=== PATIENT | female | born 1965 | race Hispanic/Latino ===

== ENCOUNTER 2019-09-24 04:16 | Observation (INO) | payer OTHER ==
[2019-09-24] MEDS ORDERED: DIAZEPAM 10 MG/2 ML INJ SYRINGE ONE (04:34)
[2019-09-24] MEDS ORDERED: NA CHLORIDE 0.9% 1,000 ML ONE ×2 (04:34→06:24)
[2019-09-24] MEDS ORDERED: ONDANSETRON 4 MG/2 ML VIAL ONE (04:34)
[2019-09-24 04:46] LABS: Basophils % 1.3 % (0-1.3); Hematocrit 35.6 % (36.0-45.0); Lymphocytes % 56.3 % (15.3-44.8); MPV 9.8 fL (7.6-11.3); RBC Red Blood Cell Count 4.09 M/uL (3.86-4.86)
[2019-09-24 05:12] LABS: Blood Morphology Comment NOT SEEN (NOT SEEN); Platelet Estimate ADEQ
[2019-09-24 05:16] LABS: ALT/SGPT 27 U/L (12-78); AST/SGOT 16 U/L (15-37); Albumin 3.6 g/dL (3.4-5.0); Alkaline Phosphatase 68 U/L (45-117); BUN Blood Urea Nitrogen 9 mg/dL (7-18); Bicarbonate 18 mmol/L (21-32); Bilirubin Direct 0.1 mg/dL (0-0.2); Bilirubin Total 0.7 mg/dL (0.2-1.0); Glucose Level 170 mg/dL (74-106); Lipase 90 U/L (73-393); Magnesium 1.9 mg/dL (1.8-2.4); Protein, Total 7.1 g/dL (6.4-8.2); Sodium Level 142 mmol/L (136-145); Troponin (Emerg Dept Use Only) < 0.02 ng/mL (0.0-0.045)
[2019-09-24 05:17] LABS: Potassium 2.6 mmol/L (3.5-5.1)
[2019-09-24] MEDS ORDERED: KCL 20 MEQ/100 mL IVPB 20 MEQ/100 ML BAG IV ONE (05:22)
[2019-09-24] MEDS ORDERED: NA CHLORIDE 0.9% 500 ML ONE (05:22)
[2019-09-24] MEDS ORDERED: PROMETHAZINE INJ 25 MG/ML AMP ONE (05:32)
--- NOTE | 2019-09-24 06:07 | ER ---
Nurse's Notes [facility] Name: Rocio Barakat Age: 53 yrs Sex: Female : 1965 Arrival Date: 09/24/2019 Time: 04:24 Bed 5 Private MD: Diagnosis: Vertigo;Intractable vomiting;Unspecified atrial fibrillation;Hypokalemia;Acidosis Presentation: 09/24 04:25 Presenting complaint: Patient states: Reports she started having N/V/D around 3 AM. ea Reports she woke up and felt the room was spinning. Transition of care: patient was not received from another setting of care. Onset of symptoms was September 24, 2019. Risk Assessment: Do you want to hurt yourself or someone else? Patient reports no desire to harm self or others. Initial Sepsis Screen: Does the patient meet any 2 criteria? No. Patient's initial sepsis screen is negative. Does the patient have a suspected source of infection? No. Patient's initial sepsis screen is negative. Care prior to arrival: None. 04:25 Method Of Arrival: Wheelchair ea 04:25 Acuity: DIANN 3 ea Triage Assessment: 04:39 General: Appears uncomfortable, Behavior is cooperative. Pain: Denies pain. Neuro: ea Level of Consciousness is awake, alert, obeys commands, Oriented to person, place, time, situation, Reports dizziness, "room spinning". Respiratory: Airway is patent Respiratory effort is even, unlabored, Respiratory pattern is regular, symmetrical. GI: Reports diarrhea, nausea, vomiting. Derm: Skin is clammy, Skin is pale, Skin temperature is cool Warm blanket placed on pt. 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 - Social history:: Smoking status: unknown. - Family history:: not pertinent. - Ebola Screening: : Patient negative for fever greater than or equal to 101.5 degrees Fahrenheit, and additional compatible Ebola Virus Disease symptoms. - Hospitalizations: : No recent hospitalization is reported. Screenin:41 Abuse screen: Denies threats or abuse. Nutritional screening: No deficits noted. jd3 Tuberculosis screening: No symptoms or risk factors identified. Fall Risk Ambulatory Aid- None/Bed Rest/Nurse Assist (0 pts). Gait- Normal/Bed Rest/Wheelchair (0 pts) Mental Status- Oriented to own ability (0 pts). Total Barone Fall Scale indicates No Risk (0-24 pts). Assessment: 04:39 General: Appears in no apparent distress. uncomfortable, Behavior is cooperative, jd3 appropriate for age, anxious. Pain: Denies pain. Neuro: Level of Consciousness is awake, alert, obeys commands, Oriented to person, place, time, situation, Reports dizziness. Cardiovascular: Denies chest pain, Capillary refill < 3 seconds Patient's skin is warm and dry. Respiratory: Airway is patent Respiratory effort is even, unlabored, Respiratory pattern is regular, symmetrical, Denies cough, shortness of breath. GI: Abdomen is round non-distended, Abd is soft and non tender X 4 quads. Reports diarrhea, nausea, vomiting, Patient currently denies abdominal pain, tolerance of fluids, tolerance of food. : No signs and/or symptoms were reported regarding the genitourinary system. EENT: No signs and/or symptoms were reported regarding the EENT system. Derm: Skin is intact, Skin is clammy, Skin is normal, Skin temperature is warm. Musculoskeletal: Circulation, motion, and sensation intact. Range of motion: intact in all extremities. 05:29 Reassessment: Patient appears in no apparent distress at this time. Patient and/or jd3 family updated on plan of care and expected duration. Pain level reassessed. Patient is alert, oriented x 3, equal unlabored respirations, skin warm/dry/pink. provider at bedside discussing plan of care. pt reports some relief from the dizziness, reports continued nausea. 05:29 Cardiovascular: Rhythm is atrial fibrillation. jd3 05:58 Cardiovascular: Rhythm is sinus rhythm. jd3 07:00 Reassessment: Patient appears in no apparent distress at this time. No changes from jl7 previously documented assessment. Patient and/or family updated on plan of care and expected duration. Pain level reassessed. Patient is alert, oriented x 3, equal unlabored respirations, skin warm/dry/pink. 08:00 Reassessment: Patient appears in no apparent distress at this time. No changes from jl7 previously documented assessment. Patient and/or family updated on plan of care and expected duration. Pain level reassessed. Patient is alert, oriented x 3, equal unlabored respirations, skin warm/dry/pink. Vital Signs: 04:42 BP 117 / 64; Pulse 104; Resp 18; Temp 96.7(A); Pulse Ox 100% ; Weight 80.29 kg; Height ea 5 ft. 4 in. (162.56 cm); Pain 0/10; 05:29 BP 100 / 68; Pulse 127; Resp 20 S; Temp 97.4(O); Pulse Ox 100% on R/A; jd3 05:58 BP 112 / 76; Pulse 72; Resp 18 S; Pulse Ox 100% on R/A; jd3 08:00 BP 99 / 58; Pulse 74; Resp 17 S; Pulse Ox 99% on R/A; jl7 04:42 Body Mass Index 30.38 (80.29 kg, 162.56 cm) ea ED Course: 04:24 Patient arrived in ED. jd3 04:30 Salomon Magallanes MD is Attending Physician. rn 04:37 Inserted saline lock: 20 gauge in right antecubital area, using aseptic technique. ea Blood collected. 04:38 Gerald Nieto RN is Primary Nurse. jd3 04:39 Triage completed. ea 04:41 Patient has correct armband on for positive identification. Bed in low position. Call ea light in reach. 04:41 Arm band placed on right wrist. Patient placed in an exam room, on a stretcher, on ea pulse oximetry. 05:32 CT Abd/Pelvis - Without Contrast In Process Unspecified. EDMS 05:32 EKG done, by ED staff, reviewed by Salomon Magallanes MD. jd3 05:34 Head Brain Wo Cont In Process Unspecified. EDMS 05:35 CT Head Angio In Process Unspecified. EDMS 05:39 CT Neck Angio In Process Unspecified. EDMS 06:05 Maximiliano Doe DO is Hospitalizing Provider. rn 07:18 Primary Nurse role handed off by Gerald Nieto, GWEN bd 08:00 No provider procedures requiring assistance completed. Patient admitted, IV remains in jl7 place. intact, No redness/swelling at site. 08:16 aHny Nath, GWEN is Primary Nurse. jl7 Administered Medications: 04:38 Drug: NS 0.9% 1000 ml Route: IV; Rate: 1000 ml; Site: right antecubital; jd3 06:33 Follow up: Response: No adverse reaction; IV Status: Completed infusion; IV Intake: ea 1000ml 04:38 Drug: Valium 2 mg Route: IVP; Site: right antecubital; jd3 05:33 Follow up: Response: No adverse reaction jd3 04:39 Drug: Zofran 4 mg Route: IVP; Site: right antecubital; jd3 05:33 Follow up: Response: No adverse reaction; Nausea unchanged jd3 05:34 Drug: Potassium Chloride 20 mEq Route: IV; Rate: calculated rate; Site: right ea antecubital; 07:30 Follow up: Response: No adverse reaction; IV Status: Completed infusion jl7 05:35 CANCELLED (Duplicate Order): NS 0.9% 500 ml IV at bolus once ea 05:36 Drug: NS 0.9% 500 ml Route: IV; Rate: 125 ml/hr; Site: right antecubital; ea 08:19 Follow up: Response: No adverse reaction; IV Status: Infusion continued upon admission jl7 05:38 Drug: Phenergan 6.25 mg Route: IVP; Site: right antecubital; ea 07:00 Follow up: Response: No adverse reaction; Nausea is decreased jl7 06:33 Drug: NS 0.9% 1000 ml Route: IV; Rate: 1000 ml; Site: right antecubital; ea 08:18 Follow up: Response: No adverse reaction; IV Status: Completed infusion; IV Intake: jl7 1000ml Intake: 06:33 IV: 1000ml; Total: 1000ml. ea 08:18 IV: 1000ml; Total: 2000ml. jl7 Outcome: 06:06 Decision to Hospitalize by Provider. rn 08:31 Admitted to Tele accompanied by tech, family with patient, via wheelchair, room 214, jl7 with chart, Report called to GWEN Hester 08:31 Condition: stable 08:31 Discharge instructions given to patient, family, Instructed on the need for admit, Demonstrated understanding of instructions. 08:32 Patient left the ED. jl7 Signatures: Dispatcher [employer] EDMS Jolene Alicia Roman, MD MD rn Leal, Jahala, RN RN jl7 Trudi Canales RN RN ea Nieto, Gerald, RN RN jd3
--- NOTE | 2019-09-24 06:07 | EDPHYS ---
Physician Documentation [facility] Name: Rocio Barakat Age: 53 yrs Sex: Female : 1965 Arrival Date: 09/24/2019 Time: 04:24 Bed 5 Private MD: ED Physician Salomon Magallanes HPI: 09/24 04:32 This 53 yrs old Female presents to ER via Unassigned with complaints of rn Nausea/Vomiting/Diarrhea. 04:32 The patient presents to the emergency department with nausea, vomiting, diarrhea. rn Onset: The symptoms/episode began/occurred this morning. Possible causes: unknown. The symptoms are aggravated by nothing. The symptoms are alleviated by nothing. Severity of symptoms: At their worst the symptoms were moderate in the emergency department the symptoms are unchanged. The patient has not experienced similar symptoms in the past. The patient has not recently seen a physician. reports about 5 episodes of vomiting, + diarrhea, both non-bloody, began early this morning, tried to get up and very dizzy, feels like room is spinning, worse with movement of head, no weakness/numbness/focal neurological complaint. no vision changes or speech changes. . 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 - Social history:: Smoking status: unknown. - Family history:: not pertinent. - Ebola Screening: : Patient negative for fever greater than or equal to 101.5 degrees Fahrenheit, and additional compatible Ebola Virus Disease symptoms. - Hospitalizations: : No recent hospitalization is reported. ROS: 04:35 Constitutional: Negative for fever, chills, and weight loss, Eyes: Negative for injury, rn pain, redness, and discharge, Neck: Negative for injury, pain, and swelling, Cardiovascular: Negative for chest pain, palpitations, and edema, Respiratory: Negative for shortness of breath, cough, wheezing, and pleuritic chest pain, Abdomen/GI: + nausea/vomiting/diarrhea MS/Extremity: Negative for injury and deformity, Skin: Negative for injury, rash, and discoloration, Neuro: Negative for headache, weakness, numbness, tingling, and seizure. Exam: 04:35 Constitutional: This is a well developed, well nourished patient who is awake, alert, rn actively vomiting, able to get into bed from wheelchair on her own Head/Face: Normocephalic, atraumatic. ENT: dry MM Cardiovascular: tachycardic, irregular Respiratory: Hyperventilating, no wheezing Abdomen/GI: soft, non-tender, non-distended Skin: Warm, dry MS/ Extremity: Pulses equal, no cyanosis. Neurovascular intact. Full, normal range of motion. Equal circumference. Neuro: Awake and alert, GCS 15, oriented to person, place, time, and situation. Cranial nerves II-XII grossly intact. Motor strength 5/5 in all extremities. Sensory grossly intact. Cerebellar exam normal. Vital Signs: 04:42 BP 117 / 64; Pulse 104; Resp 18; Temp 96.7(A); Pulse Ox 100% ; Weight 80.29 kg; Height ea 5 ft. 4 in. (162.56 cm); Pain 0/10; 05:29 BP 100 / 68; Pulse 127; Resp 20 S; Temp 97.4(O); Pulse Ox 100% on R/A; jd3 05:58 BP 112 / 76; Pulse 72; Resp 18 S; Pulse Ox 100% on R/A; jd3 08:00 BP 99 / 58; Pulse 74; Resp 17 S; Pulse Ox 99% on R/A; jl7 04:42 Body Mass Index 30.38 (80.29 kg, 162.56 cm) ea MDM: 04:30 Patient medically screened. rn 04:47 ED course: states began throwing up around 0300. . rn 06:03 ED course: ECG with afib, no hx of afib, rate control held initially for borderline BP, rn at about 0600, converted spontaneously back to sinus rhythm. Pending CT head/neck angio and abdomen, but no gross abnormalities seen. Admitted to Dr. Doe for intractable vomiting, hypokalemia, acidosis, new onset afib. . 06:12 ED course: Spoke with radiologist regarding CT head and ct angio, negative for acute rn occlusion or vascular abnormalities. . 06:30 Differential diagnosis: Nonspecific abd pain, gastritis, cholecystitis, pancreatitis, rn appendicitis, diverticulitis, viral gastroenteritis, gastroenteritis. Data reviewed: vital signs, nurses notes, lab test result(s), radiologic studies, CT scan, and as a result, I will admit patient. Counseling: I had a detailed discussion with the patient and/or guardian regarding: the historical points, exam findings, and any diagnostic results supporting the discharge/admit diagnosis, lab results, radiology results, the need for further work-up and treatment in the hospital. Response to treatment: the patient's symptoms have markedly improved after treatment, and as a result, I will admit patient. Admission orders: after a detailed discussion of the patient's condition and case, the admit orders are written by me. ED course: Radiologist reports CT abdomen shows mild enteritis, no surgical acute findings. . 09/24 04:31 Order name: Basic Metabolic Panel; Complete Time: 05:17 09/24 04:31 Order name: CBC with Diff; Complete Time: 05:17 09/24 04:31 Order name: Hepatic Function; Complete Time: 05:17 09/24 04:31 Order name: Lipase; Complete Time: 05:17 09/24 04:31 Order name: Magnesium; Complete Time: 05:17 09/24 04:31 Order name: Troponin (emerg Dept Use Only); Complete Time: 05:17 09/24 04:31 Order name: CT Head Brain wo Cont 09/24 04:32 Order name: Head Brain Wo Cont [facility] 09/24 04:48 Order name: Manual Differential; Complete Time: 05:17 [facility] 09/24 06:41 Order name: Urine Dipstick--Ancillary (enter results) [facility] 09/24 06:41 Order name: Urine --Ancillary (enter results) [facility] 09/24 08:30 Order name: Urine --Ancillary [facility] 09/24 08:30 Order name: Urine Dipstick-Ancillary [facility] 09/24 04:31 Order name: EKG; Complete Time: 04:34 rn 09/24 04:31 Order name: Cardiac monitoring; Complete Time: 04:39 09/24 04:31 Order name: EKG - Nurse/Tech; Complete Time: 05:31 09/24 04:31 Order name: IV Saline Lock; Complete Time: 04:39 rn 09/24 04:31 Order name: Labs collected and sent; Complete Time: 04:39 rn 09/24 04:35 Order name: CT Abd/Pelvis - Without Contrast rn 09/24 04:35 Order name: CT Head Angio rn 09/24 04:35 Order name: CT Neck Angio rn 09/24 04:31 Order name: NPO; Complete Time: 04:39 rn 09/24 04:31 Order name: O2 Per Protocol; Complete Time: 04:39 rn 09/24 04:31 Order name: O2 Sat Monitoring; Complete Time: 04:39 rn 09/24 04:31 Order name: Urine Dipstick-Ancillary (obtain specimen); Complete Time: 06:40 rn Administered Medications: 04:38 Drug: NS 0.9% 1000 ml Route: IV; Rate: 1000 ml; Site: right antecubital; jd3 06:33 Follow up: Response: No adverse reaction; IV Status: Completed infusion; IV Intake: ea 1000ml 04:38 Drug: Valium 2 mg Route: IVP; Site: right antecubital; jd3 05:33 Follow up: Response: No adverse reaction jd3 04:39 Drug: Zofran 4 mg Route: IVP; Site: right antecubital; jd3 05:33 Follow up: Response: No adverse reaction; Nausea unchanged jd3 05:34 Drug: Potassium Chloride 20 mEq Route: IV; Rate: calculated rate; Site: right ea antecubital; 07:30 Follow up: Response: No adverse reaction; IV Status: Completed infusion jl7 05:35 CANCELLED (Duplicate Order): NS 0.9% 500 ml IV at bolus once ea 05:36 Drug: NS 0.9% 500 ml Route: IV; Rate: 125 ml/hr; Site: right antecubital; ea 08:19 Follow up: Response: No adverse reaction; IV Status: Infusion continued upon admission jl7 05:38 Drug: Phenergan 6.25 mg Route: IVP; Site: right antecubital; ea 07:00 Follow up: Response: No adverse reaction; Nausea is decreased jl7 06:33 Drug: NS 0.9% 1000 ml Route: IV; Rate: 1000 ml; Site: right antecubital; ea 08:18 Follow up: Response: No adverse reaction; IV Status: Completed infusion; IV Intake: jl7 1000ml Disposition: 09/24/19 06:06 Hospitalization ordered by Maximiliano Doe for Inpatient Admission. Preliminary diagnosis are Vertigo, Intractable vomiting, Unspecified atrial fibrillation, Hypokalemia, Acidosis. - Bed requested for Telemetry/MedSurg (Inpatient). - Status is Inpatient Admission. jl7 - Condition is Stable. - Problem is new. - Symptoms have improved. UTI on Admission? No Signatures: Dispatcher [employer] [facility] Priti Richards RN RN dw Nieto, Roman, MD MD rn Leal, Jahala, RN RN jl7 Trudi Canales RN RN ea Davies, Jonathon RN RN jd3 Corrections: (The following items were deleted from the chart) 04:43 04:34 Abdomen Pelvis W Con+CT.RAD.BRZ ordered. [facility] 05:31 04:35 Constitutional: This is a well developed, well nourished patient who is awake, rn alert, actively vomiting, able to get into bed from wheelchair on her own Head/Face: Normocephalic, atraumatic. ENT: dry MM Cardiovascular: tachycardic, regular Respiratory: Hyperventilating, no wheezing Abdomen/GI: soft, non-tender, non-distended Skin: Warm, dry MS/ Extremity: Pulses equal, no cyanosis. Neurovascular intact. Full, normal range of motion. Equal circumference. Neuro: Awake and alert, GCS 15, oriented to person, place, time, and situation. Cranial nerves II-XII grossly intact. Motor strength 5/5 in all extremities. Sensory grossly intact. Cerebellar exam normal. rn 05:35 05:34 NS 0.9% 500 ml IV at bolus once ordered. jannie valderrama 05:35 05:35 NS 0.9% 500 ml IV at bolus once ordered. jannie valderrama 06:34 06:06 Hospitalization Ordered by Maximiliano Doe DO for Inpatient Admission. Preliminary dw diagnosis is Vertigo; Intractable vomiting; Unspecified atrial fibrillation; Hypokalemia; Acidosis. Bed requested for Telemetry/MedSurg (Inpatient). Status is Inpatient Admission. Condition is Stable. Problem is new. Symptoms have improved. UTI on Admission? No. rn 08:32 06:34 09/24/2019 06:06 Hospitalization Ordered by Maximiliano Doe DO for Inpatient jl7 Admission. Preliminary diagnosis is Vertigo; Intractable vomiting; Unspecified atrial fibrillation; Hypokalemia; Acidosis. Bed requested for Telemetry/MedSurg (Inpatient). Status is Inpatient Admission. Condition is Stable. Problem is new. Symptoms have improved. UTI on Admission? No. dw
--- NOTE | 2019-09-24 06:39 | P.HP ---
Certification for Inpatient Patient admitted to: Observation With expected LOS: <2 Midnights Patient will require the following post-hospital care: None Practitioner: I am a practitioner with admitting privileges, knowledge of patient current condition, hospital course, and medical plan of care. Services: Services provided to patient in accordance with Admission requirements found in Title 42 Section 412.3 of the Code of Federal Regulations Patient History Date of Service: 09/24/19 Primary Care Provider: Dr. Damon Reason for admission: Vertigo, nausea, vomiting, diarrhea History of Present Illness: 53-year-old female without medical problems presented to the emergency room after severe nausea, vomiting, vertigo and diarrhea. Patient went to bed around 8:00 p.m.. She had some ceviche(a south [place] dish of marinated raw shrimp) for dinner. Then around 3:30 a.m. she woke up with severe vertigo. She went to the bathroom. At that time she had severe nausea, vomiting, diarrhea and diaphoresis. She did not feel well. She denied any fever, chills. has been recently sick with upper respiratory infection. also ate the same dish last night. She came to the ER for further evaluation. In the ER patient was evaluated. EKG shows AFib with RVR with a rate around 130. After receiving 1 L bolus with replacement of potassium, she converted back to normal rhythm. Blood pressure was slightly low with a systolic around 98 -105. White count 10.7, hemoglobin 12.4. Platelet count 276. Lymphocytes elevated. Sodium 142, potassium 2.6, BUN of 9, creatinine 0.85 with a GFR 71. Bicarb 18. Blood sugar 170. Troponin less than 0.02. Lipase negative. ER reports CT head/angiogram unremarkable for acute finding. CT abdomen pending at this time. Patient stabilize in the emergency room. Patient continues to get IV fluids. Patient remains in normal sinus rhythm. Patient admitted for further evaluation and observation. When I saw the patient in the ER, at bedside. Nausea has improved. Patient still with some dizziness. Patient denies history of major medical problems. No history of AFib. Patient had been doing well prior to going to bed last night. Home medications list reviewed: Yes - Past Medical/Surgical History Diabetic: No Past Medical History: Patient denies medical history -: Left oophorectomy Psychosocial/ Personal History: Patient is . She lives at home. - Family History Father -: Hypertension, Diabetes Mother -: Heart disease - Social History Smoking Status: Never smoker Alcohol use: Yes CD- Drugs: No Caffeine use: Yes Place of Residence: Home Review of Systems General: Chills, Weakness, As per HPI Eyes: Unremarkable ENT: Unremarkable Respiratory: Unremarkable Cardiovascular: Palpitations, Light Headedness, As per HPI Gastrointestinal: Nausea, Vomiting, Diarrhea, As per HPI Genitourinary: Unremarkable Musculoskeletal: Unremarkable Neurological: As per HPI Lymphatics: Unremarkable Physical Examination - Physical Exam General: Alert, In no apparent distress, Oriented x3, Cooperative HEENT: Atraumatic, Normocephalic, Other (Dry mucous membranes) Neck: Supple, No Thyromegaly Respiratory: Clear to auscultation bilaterally, Normal air movement Cardiovascular: Normal pulses, Regular rate/rhythm Gastrointestinal: Normal bowel sounds, Soft and benign, Non-distended, No tenderness, No masses, No rebound, No guarding Musculoskeletal: No erythema, No tenderness, No warmth Integumentary: No tenderness/swelling, No erythema, No warmth, No cyanosis Neurological: Normal speech, Normal strength at 5/5 x4 extr, Normal tone, Normal affect - Studies Laboratory Data (last 24 hrs) 09/24/19 04:30: WBC 10.7, Hgb 12.4, Hct 35.6 L, Plt Count 276 09/24/19 04:30: Sodium 142, Potassium 2.6 L*, BUN 9, Creatinine 0.85, Glucose 170 H, Magnesium 1.9, Total Bilirubin 0.7, AST 16, ALT 27, Alkaline Phosphatase 68, Lipase 90 Assessment and Plan - Plan Impression: Vertigo, nausea, vomiting, diarrhea likely related to viral gastroenteritis versus food poisoning New atrial fibrillation with RVR, resolved now in normal sinus rhythm likely related to above Dehydration with hypokalemia related to above Plan: Vertigo, nausea, vomiting, diarrhea likely related to viral gastroenteritis versus food poisoning: Patient be admitted for further evaluation and treatment. Patient will get another bolus of IV fluids. Patient on potassium supplementation. Will monitor the patient closely. Will start with a clear liquid diet and advance as tolerated. Will monitor for further diarrhea. If so will check stool cultures. Will order echocardiogram, carotid Doppler and stroke protocol MRI to further evaluate. CT head/angiogram unremarkable per he ER. Await CT abdomen final results. Patient appears improved. Will provide medication for nausea. Continue IV fluids. Recheck lab later today. Dr. Neil- hospitalist will continue her care. Anticipate discharge in the next 24 hr with clinical improvement New atrial fibrillation with RVR, resolved now in normal sinus rhythm likely related to above: Patient now in normal sinus rhythm. This likely resolved after nausea/vomiting along with hydration and potassium supplementation. No need for rate control medication at this time. Likely no need for chronic anti coagulation therapy long-term. Will provide DVT prophylaxis-Lovenox. Cardiology consulted to further evaluate. Will order echocardiogram to further address. Dehydration with hypokalemia related to above: Continue IV fluid bolus and electrolyte replacement. Continue IV fluids. Will monitor closely. Advanced diet as tolerated. Discharge Plan: Home Plan to discharge in: 24 Hours - Advance Directives Does patient have a Living Will: Yes Does patient have a Durable POA for Healthcare: No - Code Status/Comfort Care Code Status Assessed: Yes (Patient is full code) Time Spent Managing Pts Care (In Minutes): 55
--- NOTE | 2019-09-24 07:42 | EKG ---
Test Date: 2019-09-24 Test Time: 05:23:36 Valance Cutter: STEPHEN MEASUREMENT RESULTS: Intervals: Rate: 134 PA: QRSD: 106 QT: 360 QTc: 537 Omro: P: PA: QRS: -6 T: 53 INTERPRETIVE STATEMENTS: Atrial fibrillation with rapid ventricular response Incomplete right bundle branch block Nonspecific ST and T wave abnormality Abnormal ECG No previous ECG available for comparison Electronically Signed On 09-24-19 07:42:00 RN IMMUNOLOGY by Jonathan Diaz
[2019-09-24 08:29] LABS: Urine Blood TRACE (NEG); Urine Glucose NEGATIVE (NEG); Urine Protein NEGATIVE (NEG); Urine Specific Gravity 1.015 (1.005-1.030)
[2019-09-24 08:55] VITALS: O2SAT 99
[2019-09-24] MEDS ORDERED: ONDANSETRON 4 MG/2 ML VIAL IV PRN (09:00)
[2019-09-24] MEDS ORDERED: FOLIC ACID 1 MG TABLET PO SCH (09:00)
[2019-09-24] MEDS ORDERED: ENOXAPARIN 40 MG/0.4 ML SQ SCH (09:00)
[2019-09-24] MEDS ORDERED: NACHLORIDE 0.45% 1,000 ML IV SCH (09:00)
[2019-09-24] MEDS ORDERED: MECLIZINE HCL 12.5 MG TAB PO PRN (09:00)
[2019-09-24] MEDS ORDERED: FAMOTIDINE 20 MG TAB PO SCH (09:00)
[2019-09-24] MEDS ORDERED: ACETAMINOPHEN 500 MG TAB PO PRN (09:00)
[2019-09-24 09:51] LABS: HDL Cholesterol 51 mg/dL (40-60); LDL Cholesterol, Calculated 97 (<130); Troponin I < 0.02 ng/mL (0.0-0.045)
--- NOTE | 2019-09-24 10:39 | EKG ---
Test Date: 2019-09-24 Test Time: 10:20:43 Bed Worker: SERGO MEASUREMENT RESULTS: Intervals: Rate: 66 WY: 130 QRSD: 98 QT: 428 QTc: 448 Carney: P: 43 WY: 130 QRS: -5 T: 5 INTERPRETIVE STATEMENTS: Normal sinus rhythm Incomplete right bundle branch block Borderline ECG Compared to ECG 09/24/2019 05:23:36 Atrial fibrillation no longer present ST (T wave) deviation no longer present Electronically Signed On 09-24-19 10:39:07 CASE COORDINATOR by Jonathan Diaz
[2019-09-24 10:48] VITALS: BMI 30.3
--- NOTE | 2019-09-24 11:46 | RAD REPORT ---
EXAM DESCRIPTION: Head angio CLINICAL HISTORY: Dizziness COMPARISON: None. TECHNIQUE: CT NECK ANGIOGRAPHY WITH IV CONTRAST, CT HEAD ANGIOGRAPHY WITH IV CONTRAST on 09/24/2019 4:35 AM STONE GANG SAWYER This exam was performed according to our departmental dose-optimization program, which includes autom ated exposure control, adjustment of the mA and/or kV according to patient size and/or use of iterati ve reconstruction technique. MIP reconstructions were generated. Stenoses are calculated by NASCET criteria. FINDINGS: The visualized aortic arch and origins of the great vessels unremarkable. The common carotid arteries are patent and symmetric bilaterally. No hemodynamically significant stenosis is observed at the common carotid bifurcations or origins of the internal carotid arteries bilaterally. Vertebral arteries are unremarkable without evidence of pseudoaneurysm, hemodynamically significant s tenosis, or dissection. Intracranially the cavernous segments of the internal carotid arteries are patent and symmetric bilat erally. Vertebral basilar system within normal limits for age. There is a large left posterior communicating artery No aneurysm identified within the [place]. Anterior, middle, and posterior cerebral circulations patent and symmetric bilaterally. Dural sinuses are well opacified and without filling defect. IMPRESSION: Unremarkable CT angiogram of the neck for age without dissection or hemodynamically sign ificant stenosis. Unremarkable CTA of the brain without evidence of hemodynamically significant stenosis, aneurysm or A VM. CAROTID STENOSIS REFERENCE USING NASCET CRITERIA: % ICA stenosis = (1 - narrowest ICA diameter/diameter of distal cervical ICA) x 100. Mild - Moderate - 50-69% stenosis. Severe - 70-94% stenosis. Near occlusion - 95-99% stenosis. Occluded - 100% stenosis. Electronically signed by: Hector Gomez MD 09/24/2019 6:34 AM STONE GANG SAWYER Due to temporary technical issues with the PACS/Fluency reporting system, reports are being signed by the in house radiologist as a courtesy to ensure prompt reporting. The interpreting radiologist is f ully responsible for the content of the report.
--- NOTE | 2019-09-24 11:49 | RAD REPORT ---
EXAM DESCRIPTION: Head Brain Wo Cont CLINICAL HISTORY: DIZZINESS COMPARISON: None. TECHNIQUE: CT HEAD WITHOUT IV CONTRAST on 09/24/2019 4:31 AM BUSINESS OWNER/ENGINEER This exam was performed according to our departmental dose-optimization program, which includes autom ated exposure control, adjustment of the mA and/or kV according to patient size and/or use of iterati ve reconstruction technique. FINDINGS: There is no acute hemorrhage, mass effect or midline shift. Peters-white differentiation is preserved. There is no hydrocephalus. There is no significant volume loss for age. The calvarium is intact. Orbits and globes are unremarkable. The paranasal sinuses are clear. Mastoid air cells are clear. IMPRESSION: No acute intracranial findings. Electronically signed by: Hector Gomez MD 09/24/2019 6:36 AM BUSINESS OWNER/ENGINEER Due to temporary technical issues with the PACS/Fluency reporting system, reports are being signed by the in house radiologist as a courtesy to ensure prompt reporting. The interpreting radiologist is f ully responsible for the content of the report.
--- NOTE | 2019-09-24 11:58 | RAD REPORT ---
EXAM DESCRIPTION: Neck Angio CLINICAL HISTORY: Dizziness COMPARISON: None. TECHNIQUE: CT NECK ANGIOGRAPHY WITH IV CONTRAST, CT HEAD ANGIOGRAPHY WITH IV CONTRAST on 09/24/2019 4:35 AM PACKAGE YARNS DRYING MACHINE OPERATOR This exam was performed according to our departmental dose-optimization program, which includes autom ated exposure control, adjustment of the mA and/or kV according to patient size and/or use of iterati ve reconstruction technique. MIP reconstructions were generated. Stenoses are calculated by NASCET criteria. FINDINGS: The visualized aortic arch and origins of the great vessels unremarkable. The common carotid arteries are patent and symmetric bilaterally. No hemodynamically significant stenosis is observed at the common carotid bifurcations or origins of the internal carotid arteries bilaterally. Vertebral arteries are unremarkable without evidence of pseudoaneurysm, hemodynamically significant s tenosis, or dissection. Intracranially the cavernous segments of the internal carotid arteries are patent and symmetric bilat erally. Vertebral basilar system within normal limits for age. There is a large left posterior communicating artery No aneurysm identified within the [place]. Anterior, middle, and posterior cerebral circulations patent and symmetric bilaterally. Dural sinuses are well opacified and without filling defect. IMPRESSION: Unremarkable CT angiogram of the neck for age without dissection or hemodynamically sign ificant stenosis. Unremarkable CTA of the brain without evidence of hemodynamically significant stenosis, aneurysm or A VM. CAROTID STENOSIS REFERENCE USING NASCET CRITERIA: % ICA stenosis = (1 - narrowest ICA diameter/diameter of distal cervical ICA) x 100. Mild - Moderate - 50-69% stenosis. Severe - 70-94% stenosis. Near occlusion - 95-99% stenosis. Occluded - 100% stenosis. Electronically signed by: Hector Gomez MD 09/24/2019 6:34 AM PACKAGE YARNS DRYING MACHINE OPERATOR Due to temporary technical issues with the PACS/Fluency reporting system, reports are being signed by the in house radiologist as a courtesy to ensure prompt reporting. The interpreting radiologist is f ully responsible for the content of the report.
--- NOTE | 2019-09-24 11:59 | RAD REPORT ---
EXAM DESCRIPTION: CT ABDOMEN AND PELVIS WITHOUT CONTRAST CLINICAL HISTORY: Vomiting/diarrhea COMPARISON: None. TECHNIQUE: Axial unenhanced CT imaging of the abdomen and pelvis performed. Reformatted coronal and sagittal images reviewed. A dose reduction technique was utilized with automated exposure control according to patient size. FINDINGS: Clear lung bases. Heart is normal in size. Normal gallbladder. Normal spleen and pancreas. Normal adrenal glands. There are a few punctate right renal stones. No hydronephrosis. Normal left kidney. Normal aorta and inferior vena cava caliber. No adenopathy. Stomach appears normal. There is a small hiatal hernia. There is slight thickening of the loops of je junum in the left abdomen with minimal mesenteric edema. Normal right lower quadrant appendix. Normal colon. No ascites or free air. Unremarkable decompressed bladder. Normal uterus and ovaries. No pelvic adenopathy. There is normal lumbar lordosis. No subluxation. Intact bony pelvis. Normal hips. IMPRESSION: 1. Mild jejunal enteritis. 2. Small hiatal hernia. 3. Nonobstructing right punctate renal stones. Findings directly communicated to Dr. Salomon Magallanes Jr. at 0629 hours on 09/24/2019. Electronically signed by: Janet Morse DO 09/24/2019 6:32 AM CONDUIT HELPER Due to temporary technical issues with the PACS/Fluency reporting system, reports are being signed by the in house radiologist as a courtesy to ensure prompt reporting. The interpreting radiologist is f ully responsible for the content of the report.
[2019-09-24 12:11] LABS: Potassium 4.7 mmol/L (3.5-5.1)
--- NOTE | 2019-09-24 12:38 | RAD REPORT ---
EXAM DESCRIPTION: MRI - Brain W/Wo Cont - 09/24/2019 12:27 pm CLINICAL HISTORY: AFIB W RBR, DIZZINESS Syncope, headache COMPARISON: MRA Head Wo Cont dated 09/24/2019; MRA Neck W/Wo Cont dated 09/24/2019 TECHNIQUE: Multi-sequence, multiplanar MR imaging of the brain was performed with contrast. FINDINGS: No intracranial hemorrhage, hydrocephalus, or extra-axial fluid collection. No edema or sh ift of midline structures. No intracranial mass. DWI is negative for acute CVA. The midline structures are normally formed. Mastoid air cells and paranasal sinuses are clear. Post-contrast images show no abnormal enhancement to suggest tumor or infection. IMPRESSION: No acute or concerning intracranial abnormalities. No pathologic post-contrast enhancement suspected.
--- NOTE | 2019-09-24 12:40 | RAD REPORT ---
EXAM DESCRIPTION: MRI - MRA Head Wo Cont - 09/24/2019 12:27 pm CLINICAL HISTORY: AFib with RVR, dizziness CVA COMPARISON: Head angio dated 09/24/2019 FINDINGS: 3D noncontrast [id number] MR angiography of the [place] was performed. No aneurysm, flow-limiting stenosis or vascular malformation is seen. origin of the left energy and conservation technician ior communicating artery noted, normal variant. Forward flow seen in the vertebral arteries, right-si ded dominant. The visualized dural venous sinuses appear patent. IMPRESSION: No significant flow abnormality of the [place] is identified.
--- NOTE | 2019-09-24 12:45 | RAD REPORT ---
EXAM DESCRIPTION: MRI - MRA Neck W/Wo Cont - 09/24/2019 12:27 pm CLINICAL HISTORY: AFIB WITH RBR, DIZZINESS Drowsiness, syncope, headache COMPARISON: No comparisons FINDINGS: Contrast enhance 2D [id number] MR angiography of the neck vessels was performed. A left aortic arch is noted with normal branching pattern. Both common carotid arteries and subclavian arteries are widely patent. Both internal carotid arteries are patent without evidence of stenosis. Antegrade flow is seen in both vertebral arteries, right-sided dominant. IMPRESSION: No significant flow abnormality of the neck vessels identified.
--- NOTE | 2019-09-24 12:51 | RAD REPORT ---
EXAM DESCRIPTION: USCarotid Artery Rhqittmgy57/16/2019 10:21 am CLINICAL HISTORY: AFib with RVR, dizziness COMPARISON: None FINDINGS: The velocity of the right internal carotid artery equals 110 cm/sec. The right ICA/CCA rat io 1.7 The velocity of the left internal carotid artery equals 95 cm/sec. The left ICA/CCA ratio .8 Plaque is not seen within the carotid arteries. The vertebral arteries demonstrate antegrade flow IMPRESSION: Unremarkable exam NASCET criteria used. Mild 0-49% stenosis Moderate 50-69% stenosis Severe 70-99% stenosis
[2019-09-24 13:07] VITALS: BP 118/58; TEMP 98.2
--- NOTE | 2019-09-24 13:53 | CON ---
Identification: 53-year-old woman. Reason For Consultation: Atrial fibrillation. History Of Present Illness: Ms. Barakat was feeling perfectly fine when she went to bed last night. She awakened about 2 a.m. with nausea and intense feeling of vertigo, lightheadedness, dizziness. A t one point, she was too weak to stand. She had to be helped. She came to the emergency room. She was found to be in atrial fibrillation with rapid ventricular response a short time after coming to [facility]. She reverted to sinus rhythm. It was not based on the action of the cardioversion or a ny drug. She had vomiting that was severe, sweating, nausea, and intense feeling of room spinning. She was also found to be hypokalemic. She takes no medications. Reports no allergies. 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 Rare alcohol. No illegal drugs. She is multigravida and she has had an ovary removed. She perez s had a CT angio of the vessels in her neck and her cervical blood vessels do not seem to have any si gnificant stenosis. There does not seem to be an obvious stroke on CT scanning of her brain. There is no neurological deficit. The CT angio also included brain vessels, they were within normal limits . Physical Examination: General: She is alert, oriented, pleasant. She is not in distress. Lungs: Clear. Vital Signs: Her blood pressure is 113/60, heart rate 66, temperature 97.7. HEENT: Normal. Lungs: Clear. Cardiac: Normal. Abdomen: Soft. Extremities: Normal. Laboratory Data: Her EKG now is normal. When she first came in, it showed atrial fibrillation with rapid ventricular response. Troponins are normal. Her laboratory tests are remarkable for a very lo w potassium level. Thyroid tests are pending. Repeat electrolytes are pending. Repeat troponins ar e pending, but everything so far is normal. Impression: The patient had paroxysmal atrial fibrillation, but good her CHADS-VASc score. She does not need to take full-dose anticoagulation, but I would recommend aspirin 81 mg per day, and I think I would avoid any antiarrhythmic drugs at this point until we see how much of this she has. It look s like she has probably benign positional vertigo, although the testing to rule out some other cause of stroke is pending. There is an MRA pending. I think this is an inner ear problem and now request s that we do Bossman maneuvers, see if we can relieve her vertigo. She still has it quite intensely. She moves her head suddenly and regarding the atrial fibrillation, I think I just give her aspirin an d then the pill in the pocket, plan with 50 mg of non-slow release regular metoprolol that she could crush and take by mouth anytime she feels her heart beating irregularly. ELROY/JESSICA Voice ID: [id number] Report ID: [id number]
--- NOTE | 2019-09-24 15:57 | ECHO ---
HEIGHT: 5 ft 4 in WEIGHT: 176 lb 10.24 oz DATE OF STUDY: 09/24/[address]: Mxaimiliano Doe DO 2-DIMENSIONAL: YES M.MODE: YES DOPPLER: YES COLOR FLOW: YES TDS: PORTABLE: DEFINITY: BUBBLE STUDY: DIAGNOSIS: ATRIAL FIBRILLATION WITH RAPID VENTRICULAR RESPONSE CARDIAC HISTORY: CATHERIZATION: NO SURGERY: NO PROSTHETIC VALVE: NO PACEMAKER: NO MEASUREMENTS (cm) DIASTOLIC (NORMALS) SYSTOLIC (NORMALS) IVSd 0.9 (0.6-1.2) LA Diam 3.2 (1.9-4.0) LVEF 68% LVIDd 4.4 (3.5-5.7) LVIDs 2.7 (2.0-3.5) %FS 38% LVPWd 0.8 (0.6-1.2) Ao Diam 2.4 (2.0-3.7) 2 DIMENSIONAL ASSESSMENT: RIGHT ATRIUM: NORMAL LEFT ATRIUM: NORMAL RIGHT VENTRICLE: NORMAL LEFT VENTRICLE: NORMAL TRICUSPID VALVE: NORMAL MITRAL VALVE: NORMAL PULMONIC VALVE: NORMAL AORTIC VALVE: NORMAL PERICARDIAL EFFUSION: NONE AORTIC ROOT: NORMAL LEFT VENTRICULAR WALL MOTION: NORMAL DOPPLER/COLOR FLOW: TRACE MITRAL REGURGITATION, OTHERWISE NORMAL. COMMENTS: NORMAL 2-DIMENSIONAL ECHOCARDIOGRAM. TRACE MITRAL REGURGITATION, OTHERWISE NORMAL CARDIAC DOPPLER. TECHNOLOGIST: OSIRIS LOPEZ
--- NOTE | 2019-09-25 03:55 | DS ---
Date of Discharge: 09/24/2019 Consultants: Dr. Diaz with Cardiology. Discharge Diagnoses: 1.Vertigo. 2.Intractable nausea, vomiting. 3.Diarrhea. 4.Possible viral gastroenteritis. 5.New-onset atrial fibrillation with rapid ventricular response, resolved, back to sinus rhythm. 6.Acute dehydration. 7.Hypokalemia. 8.Obesity, body mass index greater than 30. Hospital Course: Patient is a 53-year-old female with no significant past medical problems, comes in with sudden onset of vertigo, nausea, vomiting, and diarrhea. Patient came into the ER with dehydra tion, hypotension. Patient was found to be in atrial fibrillation with RVR with a rate of 130. Kayla ent was given 1 L normal saline bolus. White blood cell count was 10.7. CT scan of the head and ang iogram were negative for acute findings. CT of the abdomen showed some enteritis, which was likely v iral. Patient did have some raw seafood the night of . She was also found to have inciden johanna small hiatal hernia and nonobstructing right punctate renal stones. Patient was given IV fluids, was worked up for a possible CVA. MRI of the brain was negative for any acute or concerning intracr anial abnormalities. Neck MRA showed no significant floor abnormality of the neck vessels. CT angio gram of the head and neck was unremarkable for any hemodynamically significant stenosis, aneurysm, or AVM. MRA of the brain did not show any significant flow abnormality of the [place]. Carot id artery ultrasound did not show any hemodynamically significant stenosis. Echocardiogram was also done. Patient was seen by Dr. Diaz for the new-onset atrial fibrillation. He recommended outpatie nt sleep study to rule out obstructive sleep apnea. Patient had converted back to sinus rhythm, did have incomplete right bundle branch block on EKG. Patient was not recommended to be on any full-dose anticoagulation, other than aspirin 81 mg daily. Patient was seen by Physical Therapy. She worked with them and was able to ambulate without much difficulty. She was shown the Bossman maneuver and her vertigo improved. This was likely benign positional vertigo, however, stroke was ruled out. Poonam marcial was then cleared for discharge. She was sent home on meclizine p.r.n., daily aspirin, as well as m etoprolol 50 mg as needed for palpitations. Diet: Calorie-restricted diet. Followup: Follow up with primary care physician in 2 days. Follow up with medical specialist, Dr. Diaz, in 1 to 2 weeks for sleep study and return to ER for worsening condition. Physical Examination: General: Awake, alert, and oriented x3. No acute distress. CV: S1, S2. Regular rate and rhythm. Respiratory: Moving air well bilaterally. Abdomen: Soft, nontender, nondistended. Positive bowel sounds. Extremities: No clubbing, cyanosis, or edema. Neuro: Nonfocal. SA/MODL Voice ID: [id number] Report ID: [id number]
== END 2019-09-24 14:38 | disposition home or self-care (01) ==
LOC: ER 04:16 → ERHOLD 06:26 → 2ND 08:28
PROVIDERS: ADMIT Family Medicine; ATTEND Family Medicine
DX: R42 Dizziness and giddiness (principal); R11.2 Nausea with vomiting, unspecified; R19.7 Diarrhea, unspecified; I48.91 Unspecified atrial fibrillation; E86.0 Dehydration; E87.6 Hypokalemia; E66.9 Obesity, unspecified; Z68.30 Body mass index [BMI] 30.0-30.9, adult
CPT/HCPCS: 96365; 96361; 93005 ×2; 93306; 85025; 80048 ×2; 36415; 83735; 81025; 80061; 80076; 84443; 81003; 84484 ×2; 84439; 83690; 70450; 70496; 70498; 74176; 93880; 70553; 70544; 70549; 97112; 97116; 97161; 96375; 99285; 96366; Q9967; A9577; J2550; J8597; J1650; J3360; J7040; J7030 ×2; J2405; G0378 ×2